=== PATIENT | female | born 1990 | race Two or more races ===

== ENCOUNTER 2020-07-19 04:40 | Observation (INO) | payer OTHER ==
[~2020-07-19] VITALS: Ht 167.6 cm; Wt 99.8 kg
[2020-07-19] MEDS ORDERED: SODIUM CITR/CITRIC ACID ORAL SOLN 30 ML PO SCH (09:00)
== END 2020-07-19 06:55 | disposition home or self-care (01) ==
LOC: LDRP 04:40
PROVIDERS: ADMIT Specialist; ATTEND Specialist
DX: O62.9 Abnormality of forces of labor, unspecified (principal); Z3A.36 36 weeks gestation of pregnancy
CPT/HCPCS: 59025; 81002; G0378

== ENCOUNTER 2021-01-08 21:53 | Emergency (ER) | payer MEDICAID, OTHER ==
[~2021-01-08] VITALS: Ht 167.6 cm; Wt 97.5 kg
[2021-01-08 21:59] VITALS: BP 128/91
== END 2021-01-08 22:46 | disposition left against medical advice (07) ==
LOC: ER 21:53
DX: M25.571 Pain in right ankle and joints of right foot (principal); Z53.21 Procedure and treatment not carried out due to patient leaving prior to being seen by health care provider

== ENCOUNTER 2021-02-26 09:26 | Emergency (ER) | payer OTHER ==
[~2021-02-26] VITALS: Ht 167.6 cm; Wt 97.1 kg
[2021-02-26 10:24] VITALS: BP 140/86
[2021-02-26 11:07] LABS: Basophils # (auto) 0 10 ^3/uL (0-0.2); Basophils % (auto) 0.4 % (0.0-2.0); Eosinophils # (auto) 0.1 10 ^3/uL (0-0.8); Eosinophils % (auto) 1.7 % (0.0-7.0); Hematocrit 41.9 % (36.0-46.0); Hemoglobin 14.7 g/dL (12.2-16.2); Lymphocytes # (auto) 1.9 10 ^3/uL (0.4-5.4); Lymphocytes % (auto) 35.1 % (10.0-50.0); Mean Corpuscular Hemoglobin 32.8 pg (28.0-32.0); Mean Corpuscular Volume 93.9 fL (80.0-100.0); Monocytes # (auto) 0.4 10 ^3/uL (0-1.3); Monocytes % (auto) 6.8 % (0.0-12.0); Nucleated Red Blood Cells % 0.1 %; Red Blood Cells 4.46 10^6/uL (4.0-5.20); Red Cell Distribution Width 12.6 % (11.8-14.3); White Blood Cell 5.4 10^3/uL (4.4-10.8)
[2021-02-26 11:39] LABS: Urine Bacteria NONE SEEN /hpf (None Seen); Urine Blood Negative /uL (Negative); Urine Specific Gravity 1.033 (1.001-1.035); Urine WBC 38 /hpf (0 - 5)
[2021-02-26] MEDS ORDERED: NAPR500T31 PO (11:51)
[2021-02-26] MEDS ORDERED: CIPR-173 PO (11:51)
== END 2021-02-26 11:54 | disposition home or self-care (01) ==
LOC: ER 09:26
DX: N39.0 Urinary tract infection, site not specified (principal); N92.6 Irregular menstruation, unspecified
CPT/HCPCS: 36415; 81001; 84702; 85025